=== PATIENT | male | born 1970 | race Caucasian/White ===

== ENCOUNTER 2021-10-03 10:28 | Outpatient (CLI) | payer MEDICARE, MEDICAID, SELFPAY ==
--- NOTE | ~2021-10-03 | US_ITS ---
EXAMINATION: US soft tissue UE RT DATE: 10/03/2021 11:03 INDICATION: Right hand foreign body. TECHNIQUE: Multiple grayscale and Doppler ultrasound images of the right hand were obtained. COMPARISON: None FINDINGS: In the dorsal right hand, there is thrombus in a superficial vein. IMPRESSION: 1. Thrombus in a superficial vein in dorsal right hand. 2. No foreign body. Reviewed, dictated and finalized at location A.
== END 2021-10-03 10:29 | disposition home or self-care (01) ==
LOC: CHSIMG 10:30
PROVIDERS: PCP Internal Medicine; Visit Provider Nurse Practitioner Family
DX: M79.641 Pain in right hand (principal); M79.89 Other specified soft tissue disorders
CPT/HCPCS: 76882

== ENCOUNTER 2022-12-28 09:49 | Outpatient (CLI) | payer MEDICARE, MEDICAID, SELFPAY ==
--- NOTE | ~2022-12-28 | US_ITS ---
EXAMINATION: US retroperitoneal comp DATE: 12/28/2022 11:12 INDICATION: Right ureterovesicular junction stone TECHNIQUE: Multiple ultrasound grayscale images of the kidneys were obtained. COMPARISON: None. FINDINGS: The right kidney measures 11.3 x 5.1 x 4.3 cm. The left kidney measures 12.2 x 5.1 x 6.0 cm. The kidn eys demonstrate normal echogenicity. There is no hydronephrosis in either kidney. No stones identifi ed. The bladder is normal. IMPRESSION: 1. Normal kidneys without hydronephrosis. Reviewed, dictated and finalized at location A.
== END 2022-12-28 09:50 | disposition home or self-care (01) ==
LOC: CHSIMG 09:52
PROVIDERS: PCP Internal Medicine; Visit Provider Internal Medicine
DX: N20.1 Calculus of ureter (principal)
CPT/HCPCS: 76770

== ENCOUNTER 2024-12-14 11:38 | Outpatient (CLI) | payer MEDICARE, MEDICAID, SELFPAY ==
--- NOTE | ~2024-12-14 | XR_ITS ---
EXAMINATION: XR chest 2V 12/14/2024 12:06 INDICATION: Right upper quadrant pain PROCEDURE: 2 view chest COMPARISON: 03/16/2013 FINDINGS: The lungs are clear. The cardiomediastinal silhouette is within normal limits. There are no pleural effusions. There is no pneumothorax suspected. IMPRESSION: 1: NO ACUTE CARDIOPULMONARY DISEASE. Reviewed, dictated and finalized at location B.
--- NOTE | ~2024-12-14 | CT_ITS ---
CT of the Abdomen: Indication: Right upper quadrant pain Technique: 2.5 mm axial scans were obtained through the abdomen following intravenous administration of 100 cc of Omnipaque 350. Dose reduction technique was used on this scan by utilizing automated ex posure control and iterative reconstruction technique. The dose-length product (DLP) was 157.09 mGy-c m. Findings: Scans through the lung bases are unremarkable. The liver, spleen, pancreas, gallbladder, adrenals and kidneys are within normal limits. No evidence of aortic aneurysm. No lymphadenopathy. Visualized bowel loops are unremarkable. No ascites. Impression: No significant abnormalities seen. Reviewed, dictated and finalized at location M. Impression: No significant abnormalities seen.
[2024-12-14 11:59] LABS: Hematocrit 43.6 % (40.0-54.0); Hemoglobin 14.4 g/dL (14.0-18.0); Mean Corpuscular Hemoglobin 31.2 pg (27.0-31.0); Mean Corpuscular Volume 94.6 fL (78.0-102.0); Mean Platelet Volume 10.6 fl (8.7-11.0); Platelet Count Result 197 K/mm3 (150-420); Red Blood Count 4.61 M/mm3 (4.70-6.10); Red Cell Distribution Width 11.9 % (11.6-14.4); White Blood Count 8.1 K/mm3 (4.8-10.8)
[2024-12-14 12:10] LABS: Lactic Acid Reflex 1.5 mmol/L (0.4-2.0)
[2024-12-14 12:12] LABS: Alanine Aminotransferase 20 U/L (6-50); Albumin Level 4.6 g/dL (3.5-5.1); Alkaline Phosphatase 55 U/L (38-126); Anion Gap 5 mmol/L (4-12); Aspartate Amino Transferase 21 U/L (17-59); Bilirubin,Total 0.8 mg/dL (0.2-1.3); Blood Urea Nitrogen 16 mg/dL (9-20); Calcium 9.1 mg/dL (8.4-10.2); Carbon Dioxide 28 mmol/L (22-30); Chloride 106 mmol/L (98-107); Estimated Glomerular Filt Rate > 60; Glucose 100 mg/dL (65-110); Osmolality Calculated 289 mOsm/kg (285-295); Potassium 4.7 mmol/L (3.4-5.0); Sodium 139 mmol/L (137-145); Total Protein 7.2 g/dL (6.3-8.2)
--- OUTSIDE RECORDS SUMMARY | 2024-12-14 12:35 | XMS_ITS | Encounter Summary ---
Author Organization [facility] Healthcare Address [address] [place] [address] Care Team Providers Care Web Content Executive Name Role Phone Misael Treviño MD Primary Care Provider [phone] Encounter Details Date Type Department Care Team (Late st Contact Info) Description 09/16/2021 Documentation [facility] [address] [place] [address] Emily Abbott RN Social History Tobacco Use Types Packs/Day Years Used Date Smoking Tobacco: Former Cigarettes 1 34 1 985 - 2019 Smokeless Tobacco: Never AUDIT-C Answer Date Recorded Q1: How often do you have a drink containing alc ohol? Never 09/09/2021 Average Number of Drinks Not on file 022 Q3: How often do you have si x or more drinks on one occasion? 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
--- OUTSIDE RECORDS SUMMARY | 2024-12-14 12:35 | XMS_ITS | Data Portability ---
Author Organization [facility], [address] [facility] ([place]) Address [address] [place] [address] Care Team Providers Care Concrete Bucket Unloader Name Role Phone ANJEL TORRES Primary Care Provider [phone] Assessment Encounter Date Assessment Date Assessment LastModified by Organization Details LastModified Time 04/11/2024 04/11/2024 In summary, patient s course is stable. PLAN 1. Continue Copaxone for MS preventive therapy. 2. Continue tizanidine for MS-related muscle spasms. 3. Continue ropinirole for restless leg symptoms. 4. Follow up in six months. Patient is aware that I will be retiring at the end of the year, and I will be transferring care to Misty Alcantar of our department. [email or web address] Not available 04/11/2024 15:59:18 10/10/2024 10/10/2024 Dhaval is here today for follow-up for MS and RLS. His MS is currently stable. His RLS is well-controlled . 1. He will go to lab today to have his vitamin D level checked. 2. He will continue Copaxone injections 3 times a week. 3. Continue tizanidine 2 mg twice a day. 4. Continue ropinirole 2 mg 3 times daily for RLS. 5. All patient's question concerns were addressed. He agrees with the plan. 6. Follow-up in 1 year or sooner if needed. [email or web address] Not available 10/10/2024 12:25:21 Plan of Treatment Reminders Order Date Submit Date Provider Last Modified By Organization Details Last Modified Time Details Appointments Establish ed Patient 15.EST 2025 10:00A M Misty Alcantar Not available Not available Not available Lab vitamin D, 25-hydrox y, total, serum [address] [facility], [address] [place] [address], [id number], 10/10/2024 16:26:58 Referral None recorded. Procedures None recorded. Surgeries None recorded. Imaging None recorded. Medication Orders ropinirol e 2 mg tablet 2024 [place] [id number], [address] [place] [address], [address], 10/10/2024 12:16:40 Patient TargetsNo targets recorded. Patient InstructionsNo instructions recorded. Reason for Referral None Reported. Results Created Date Observation Date Name Description Value Unit Range Abnormal Flag Note LastModifiedBy Organization Detail LastModifiedTime 10/11/1910/10/2024 vitam in D, 25-hy droxy , total , serum vitamin D 25-hydroxy totl 33.0 NG/mL 30.0-8 0.0 Less than 20 ng/mL Defic iency 20-29 ng/mL Insuf ficie ncy 30-80 ng/mL Optim al Great er than 80 ng/mL Possi ble toxic ity Not Available [facility] [address] [place] [address], [address], 10/10/2024 16:26:58 Result Notes None recorded. Problems Name Problem SNOMED Code Status Onset Date Resolution Date Notes Provider Name and Address Organization Details Recorded Time Multiple sclerosis 21782630 Active Deja Moran [facility] 4 17:51:30 Spasm 42872423 Active Epifanio Caruso MD [address] [place] [address], [phone] , [facility] 4 11:43:49 Restless legs 85821611 Active Epifanio Caruso MD [address] [place] [address], [phone] , [facility] 4 11:44:07 Problem Notes None recorded. Medical Equipment None Reported. Medications Name Sig Start Date Stop Date Status Note LastModified by Organization Details LastModified Time citalopram 40 mg tablet TAKE 1 TABLET BY MOUTH IN THE MORNING active Not Available Not Available No t Available ropinirole 2 mg tablet TAKE 1 TABLET BY MOUTH 3 TIMES A DAY active Not Available Not Available No t Available tizanidine 2 mg capsule TAKE 1 CAPSULE BY MOUTH 2 TIMES A DAY active Not Available Not Available No t Available pregabalin 75 mg capsule TAKE 1 CAPSULE BY MOUTH TWICE A DAY 04/11 completed Not Available Not Available Not Available pregabalin 150 mg capsule TAKE 1 CAPSULE BY MOUTH TWICE A DAY 04/11 completed Not Available Not Available Not Available pregabalin 300 mg capsule TAKE 1 CAPSULE (300 MG TOTAL) BY MOUTH 2 TIMES A DAY. 04/11 completed Not Available Not Available Not Available Copaxone 40 mg/mL subcutaneous syringe active Not Available Not Available Not Available Vitals Date Recorded Body weight Heart rate Oxygen saturation Oxygen saturation in Arterial blood by Pulse oximetry Systolic blood pressure Diastolic blood pressure Provider Name and Address Organization Details Last Updated DateTime 5 02223.6 9 g 65 /min 98 % 98 % 110 mm[Hg] 78 mm[Hg] Paty [facility] 5 11:55:21 Social History Question Answer Notes LastModified by [employer] Details LastModified Time Tobacco Smoking Status Never Smoker [facility] 10/10/2024 11:55:53 Which Illicit Or Recreational Drugs Have You Used? Marijuana [email or web address] Information not available 10/10/2024 Sex: Unknown Functional Status Question Answer Note LastModified by [employer] Details LastModified Time Do you use any illicit or recreational drugs? Yes [email or web address] Information not available 10/10/2024 Mental Status None recorded. Family History Nothing Reported. Medical History No medical history recorded. Past Encounters Encounter ID Performer Location Encounter Start Date Encounter Closed Date Diagnosis/Indication Diagnosis SNOMED-CT Code Diagnosis ICD10 Code Diagnosis Note [id number] Epifanio Caruso MD [address] [facility] ([place]) [address] [place] [address],[address] [place] [phone] 04/11/2024 11:39:09 04/11/2024 13:23:10 Multiple sclerosis 77127356 G35 Taking hig h risk medication 0674556107 32621 Z79.899 Additional diagnosis detail: High risk medication use Restless legs 65177522 G 25.81 [id number] Misty Alcantar PA-C [address] [facility] ([place]) [address] [place] [address],[address] [place] [address] 10/10/2024 11:49:25 10/10/2024 12:16:05 Restless legs 21113488 G25.81 Multiple sclerosis 43664 007 G35 Taking hig h risk medication 3512356731 71297 Z79.899 Health Concerns Section Related Observation LastModified by Organization Detai ls LastModified Time None Recorded Concern Status LastModified by Organization Details LastModified Time None Recorded Advance Directives Directive None Recorded Payers Insurance Date Sequence Insurance Name Policy Number Policy Way Covered Member ID Way Member ID Guarantor Name 10/06/2024 1 [place] Dhaval Kaur [id number] Dhaval Kaur 10/07/2024 2 [place] [employer] Dhaval Kaur [id number] Dhaval Kaur Notes Date Note Type Note Provider Name and Address Organization Details Recorded Time 04/11/2024 text/html Patient was seen in the office for follow up. He has multiple sclerosis and restless leg syndrome. He is on Copaxone for MS preventive therapy and that has worked well for him with no recent flareups of his disease. He takes ropinirole for his restless leg symptoms and he takes tizanidine for muscle spasms. Those all work well. He walks with a cane and a right AFO. He still drives short distances. He is independent in all of his cares. He has no major concerns today. Epifanio Caruso MD [address] [facility], [place], [address], [facility] 04/17/2024 08:36:25 10/10/2024 text/html Dhaval is here today for follow-up for MS and RLS. He previously was seeing Dr. Caruso. He was diagnosed with MS about 28 years ago at [facility]. He developed optic neuritis and then right sided weakness. He had a spinal tap and MRI to confirm the diagnosis. He initially was started on Avonex. He was then switched over to Copaxone. He still is on Copaxone 3 days a week. He denies any side effects. He does still have residual right sided weakness from his MS. He does ambulate with a cane. He has not had any falls. He does try to stay active. His last MS exacerbation was about a year ago. Usually he will do prednisone pills for which will help. He also takes tizanidine 2 mg twice a day. He is on ropinirole 2 mg 3 times daily for RLS. He reports that is pretty well-controlled. Sometimes RLS does keep him up at night. He has never had his vitamin D level checked. He denies any other changes to his medical history, surgeries or hospitalizations. He has no other new complaints today. Misty Alcantar PA-C [address] [facility], [place], [address], [facility] 10/10/2024 12:25:33
--- OUTSIDE RECORDS SUMMARY | 2024-12-14 12:35 | XMS_ITS | Encounter Summary ---
Author Organization [facility] Healthcare Address [address] [place] [address] Care Team Providers Care Farm Facility Manager Name Role Phone Misael Treviño MD Primary Care Provider [phone] Encounter Details Date Type Department Care Team ([facility] Contact Info) Description 08/21/2021 Telephone [facility] Radiology [address] [place] [address] Roberto Adkins MD [address] [place] [address] Social History Tobacco Use Types Packs/Day Years Used Date Smoking Tobacco: Former Cigarettes 1 34 1 985 - 2019 Smokeless Tobacco: Never AUDIT-C Answer Date Recorded Q1: How often do you have a drink containing alc ohol? 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
--- OUTSIDE RECORDS SUMMARY | 2024-12-14 12:36 | XMS_ITS | Referral Summary ---
Author Organization [facility] Address [facility] [place] [address] Care Team Providers Care Dining Room Busser Name Role Phone Misael Treviño MD Primary Care Provider [phone] Allergies Active Allergy Reactions Criticality Noted Date Comments Lorazepam Other (See comments) Low 09/09/2021 Makes him very jittery Etodolac Nausea And Vomiting High 05/10/2021 Medications citalopram (CeleXA) 40 mg tabletIndicatio ns:Anxiety with Depression Take 1 tablet (40 mg total) by mouth every morning 05/09/2021 Active Copaxone 40 mg/mL syringe 1 mL (40 mg total) 3 (three) times a week Wednesday, Wednesday, Wednesday06/02/2021 Active rOPINIRole (REQUIP) 2 mg tablet Take 1 tablet (2 mg total) by mouth 3 (three) times a day 05/17/2021 Active TiZANidine (ZANAFLEX) 2 mg capsuleIndicati ons:Muscle Spasm Take 1 capsule (2 mg total) by mouth 3 (three) times a day Active medical cannabis each 1 Dose as needed Active HYDROcodone-guillermina taminophen (NORCO) 5-325 mg per tablet Take 1 tablet by mouth every 6 (six) hours as needed 12/22/2022 Active tamsulosin (FLOMAX) 0.4 mg extended release capsule Take 1 capsule (0.4 mg total) by mouth daily 12/22/2022 Active pregabalin (LYRICA) 300 mg capsuleIndicati ons:Trigeminal neuralgia Take 1 capsule (300 mg total) by mouth 2 (two) times a day 180 capsule 3 07/28/2023 Active Active Problems Problem Noted Date Diagnosed Date MS (multiple sclerosis) 10/16/2021 Sensorineural hearing loss, asymmetrical 022 Trigeminal neuralgia 08/25/2021 Immunizations Immunization Administration Dates Next Due TD Preservative Free 01/12/2011 Social History Tobacco Use Types Packs/Day Years Used Date Smoking Tobacco: Former Cigarettes 1 34 1 985 - 2019 Smokeless Tobacco: Never Tobacco Cessation:Counseling Given: No AUDIT-C Answer Date Recorded Q1: How often do you have a drink containing alc ohol? Never 09/25/2021 Average Number of Drinks Not on file 022 Q3: How often do you have si x or more drinks on one occasion? 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 Gender Identity Not on file Sexual Orientation Not on file Last Filed Vital Signs Vital Sign Reading Time Taken Comments Blood Pressure 124/76 09/18/2021 7:00 AM CDT Pulse 64 09/18/2021 7:00 AM CDT Temperature 36.7 C (98.1 F) 09/18/2021 7:00 AM CDT Respiratory Rate 15 09/18/2021 7:00 AM CDT Oxygen Saturation 99% 09/18/2021 7:00 AM CDT Inhaled Oxygen Concentration - - Weight 83.9 kg (185 lb) 11/24/2021 12:03 PM CDT Height 177.8 cm (5' 10) 11/24/2021 12:03 PM CDT Body Mass Index 26.54 11/24/2021 12:03 PM CDT Plan of Treatment Not on file Medical Devices Implanted Type Area Pensionholder Information Clerk Device Identifier Shelf Expiration Date Model / Serial / Lot [employer] 6191-1-010 Simplex P Radiopaque Full Dose Cement Bone Sterile - [id number] Implanted:Qty: 1 on 09/16/2021 by Roberto Adkins MD at [facility] Cranial [employer] 6191-1-010 / / [employer] [id number] Traumaone Nico 6 Hole Midface Regular Straight Plate Bone - [id number] Implanted:Qty: 1 on 09/16/2021 by Roberto Adkins MD at [facility] Cranial [employer] 17 / / [employer] [id number] Traumaone Nico 1.5mm 4mm Self Drill High [address] - [id number] Implanted:Qty: 2 on 09/16/2021 by Roberto Adkins MD at [facility] Cranial [employer] [id number] / / Insurance MEDICARE [facility] Advance Directives For more information, please contact: [phone] * Full Code (Latest Code Status on File) Date Activated Date Inactivated Comments 09/16/2021 7:21 PM 09/18/2021 4:13 PM * Full Code Date Activated Date Inactivated Comments 09/16/2021 7:17 PM 09/16/2021 7:21 PM Care Teams Dining Room Busser Relationship Specialty Start Date End Date Misael Treviño MD [address] [place] [address] PCP - General Internal Medicine 06/19/21
--- OUTSIDE RECORDS SUMMARY | 2024-12-14 12:36 | XMS_ITS | Clinical Summary ---
Author Organization [facility] Address [facility] [place] [address] Care Team Providers Care Insurance Verifier Name Role Phone Misael Treviño MD Primary Care Provider [phone] Allergies Active Allergy Reactions Criticality Noted Date [...] Dates Next Due TD Preservative Free 01/12/2011 Surgical History Surgery Date Site/Laterality Comments COLONOSCOPY Medical History Medical History Date Comments Depression MS (multiple sclerosis) (HCC) Trigeminal neuralgia Sleep apnea Family History Medical History Relation Name Comments Cancer Brother Hypertension Father Stroke Father Alzheimer's disease Maternal Grandfather Depression Maternal Grandfather Memory loss Maternal Grandfather Stroke Maternal Grandfather Depression Maternal Grandmother Diabetes Maternal Grandmother Heart attack Mother Heart disease Mother Hypertension Mother Kidney disease Mother Anemia Sister Depression Sister Relation Name Status Comments Brother Father Maternal Grandfather Maternal Grandmother Mother Sister Social History Tobacco Use Types Packs/Day Years Used Date Smoking Tobacco: Former Cigarettes 1 34 1 - 2018 Smokeless Tobacco: Never Tobacco Cessation:Counseling Given: No [...] on file 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 Gender Identity Not on file Sexual Orientation Not on file Obstetrics History Last Filed Vital Signs Vital Sign Reading [...] 11/24/2021 12:03 PM CDT Plan of Treatment Health Maintenance Due Date Last Done Comments Colon Cancer Screening-Colonoscopy 1970 Depression Screening 1970 Hepatitis C Screening 1970 Prostate Cancer Screening-PSA 1970 Hepatitis B Screening 1988 Regular Well Visit/Exam 18-64 1988 DTaP/Tdap/Td Vaccine (1 - Tdap) 01/13/2011 01/12/2011 Lung Cancer Screening 2020 Zoster Vaccine (1 of 2) 2020 Covid-19 Vaccine (4 - 2023-2 5 season) 2024 06/05/2021, 10/08/2020, 09/16/2020 Influenza Vaccine (Season Ended) 2025 Pneumococcal vaccine <65 Aged Out No longer eligible based on patient's age to complete this topic Medical Devices Implanted Type Area Monotype Mechanic Device Identifier Shelf Expiration Date Model / Serial / Lot [employer] 6191-1-010 Simplex P Radiopaque Full Dose Cement Bone Sterile - [id number] Implanted:Qty: 1 on 09/16/2021 by Roberto Adkins MD at [facility] Cranial [employer] 6191-1-010 / / [employer] -[id number] Traumaone Nico 6 Hole Midface Regular Straight Plate Bone - [id number] Implanted:Qty: 1 on 09/16/2021 by Roberto Adkins MD at [facility] Cranial [employer] -[id number] / / [employer] -[id number] Traumaone Nico 1.5mm 4mm Self Drill High [address] - [id number] Implanted:Qty: 2 on 09/16/2021 by Roberto Adkins MD at [facility] Cranial [employer] [id number] / / Insurance MEDICARE [facility] Address: [address] [address] [place] [address] [employer] Advance Directives For more information, please contact: [phone] * Full Code (Latest Code Status on File) Date Activated Date Inactivated Comments 09/16/2021 7:21 PM 09/18/2021 4:13 PM * Full Code Date Activated Date Inactivated Comments 09/16/2021 7:17 PM 09/16/2021 7:21 PM Care Teams Insurance Verifier Relationship Specialty Start Date End Date Misael Treviño MD [address] [place] [address] PCP - General Internal Medicine 06/19/21
== END 2024-12-14 11:39 | disposition home or self-care (01) ==
LOC: CHSLAB 11:43
PROVIDERS: PCP Internal Medicine; Visit Provider Internal Medicine
DX: R10.11 Right upper quadrant pain (principal); R07.89 Other chest pain
CPT/HCPCS: 36415; 71046; 74160; 80053; 83605; 85027; Q9967

== ENCOUNTER 2024-12-19 10:09 | Outpatient (CLI) | payer MEDICARE, MEDICAID, SELFPAY ==
--- NOTE | 2024-12-19 11:12 | ECHO_ITS ---
Patient Info Name: Dhaval Kaur Age: 54 years : 1970 Gender: Male Ht: 70 in Wt: 168 lbs BSA: 1.95 m2 HR: 52 bpm BP: 131 / 66 mmHg Technical Quality: Good Exam Date: 12/19/2024 10:23 AM Patient Status: O Admit Date: 12/19/2024 Exam Type: CA echo doppler color flow Complete two-dimensional, color flow and Doppler transthoracic echocardiogram is performed. Merchandising Execution Associate: Annia Ram Attending Provider: Misael Treviño MD Summary 1. Complete two-dimensional, color flow and Doppler transthoracic echocardiogram is performed. 2. Left ventricular chamber dimension is normal. 3. Left ventricular systolic function is normal, estimated at 65-70. 4. The left ventricular diastolic function is normal. 5. E/e' 6 is not elevated. 6. There is mild aortic valve sclerosis. 7. There is trace mitral valve regurgitation. 8. There is trace tricuspid valve regurgitation. 9. No pulmonary hypertension, estimated pulmonary arterial systolic pressure is 34 mmHg. 10. Dilated inferior vena cava with >50% collapse upon inspiration consistent with elevated right atrial pressure, 10 mmHg. Left Ventricle E/e' 6 is not elevated. Left ventricular chamber dimension is normal. Left ventricular systolic function is normal, estimated at 65-70. The left ventricular diastolic function is normal. Right Ventricle Right ventricular chamber dimension is normal. Right ventricular systolic function is normal and with normal TAPSE 2.9 cm. Left Atria Left atrial chamber dimension is normal. Right Atria Right atrial chamber dimension is normal. Aortic Valve The aortic valve is trileaflet. There is mild aortic valve sclerosis. There is no aortic valve stenosis. There is no aortic valve regurgitation. Pulmonic Valve There is no pulmonic regurgitation. Mitral Valve There is no mitral valve stenosis. There is trace mitral valve regurgitation. Tricuspid Valve There is trace tricuspid valve regurgitation. No pulmonary hypertension, estimated pulmonary arterial systolic pressure is 34 mmHg. Pericardium/Pleural There is no pericardial effusion. Inferior Vena Cava Dilated inferior vena cava with >50% collapse upon inspiration consistent with elevated right atrial pressure, 10 mmHg. Aorta The aortic root size at the sinus of Valsalva is normal. Left Ventricular Outflow Tract Name Value Normal LVOT 2D LVOT Diameter 1.9 cm LVOT Doppler LVOT Peak Velocity 133 cm/s LVOT Peak Gradient 7 mmHg LVOT Mean Gradient 3 mmHg LVOT VTI 29 cm LVOT VTI/AV VTI Ratio 0.8 LVOT Stroke Volume 79 ml LVOT CO 3.9 l/min LVOT CI 2.0 l/min/m2 Pulmonic Valve Name Value Normal PV Doppler PV Peak Velocity 90 cm/s PV Peak Gradient 3 mmHg Mitral Valve Name Value Normal MV Diastolic Function MV E Peak Velocity 94 cm/s MV A Peak Velocity 55 cm/s MV E/A 1.7 MV Decel Time (PW) 233 ms MV Annular TDI MV E/e' (Septal) 7.0 MV E/e' (Lateral) 6.2 MV E/e' (Average) 6.6 Tricuspid Valve Name Value Normal TV Regurgitation Doppler TR Peak Velocity 243 cm/s TR Peak Gradient 20 mmHg Estimated PAP/RSVP RA Pressure 10 mmHg <=5 PA Systolic Pressure 34 mmHg <36 RV Systolic Pressure 34 mmHg <36 TV Annular TDI TV Lateral Chanda s' Velocity 14.6 cm/s >=9.5 Aortic Valve Name Value Normal AV Doppler AV Peak Velocity 162 cm/s AV Peak Gradient 10 mmHg AV Mean Gradient 5 mmHg AV VTI 36 cm AV Area (Cont Eq VTI) 2.2 cm2 >=3.0 AV Area (Cont Eq Prosper) 2.3 cm2 AV DI (Prosper) 0.82 AV Regurgitation 2D LVOT Area 2.7 cm2 Ventricles Name Value Normal LV Dimensions 2D/MM IVS Diastolic Thickness (2D) 0.9 cm 0.6-1.0 LVID Diastole (2D) 4.6 cm 4.2-5.8 LVIW Diastolic Thickness (2D) 0.9 cm 0.6-1.0 LVID Systole (2D) 2.8 cm 2.5-4.0 LVOT Diameter 1.9 cm LV Mass (2D Cubed) 139.34 g 88.00-224.00 LV Mass Index (2D Cubed) 72 g/m2 49-115 Relative Wall Thickness (2D) 0.39 <=0.42 LV Fractional Shortening/Ejection Fraction 2D/MM LV Fractional Shortening (2D) 40 % 25-43 LV EF (2D Teichholz) 70 % LV Diastolic Volume (4C MOD) 122 ml LV EF (4C MOD) 66 % LV Diastolic Volume (2C MOD) 134 ml LV EF (2C MOD) 69 % LV Diastolic Volume (BP MOD) 128 ml 62-150 LV Diastolic Volume Index (BP MOD) 66 ml/m2 34-74 LV Systolic Volume (BP MOD) 44 ml 21-61 LV Systolic Volume Index (BP MOD) 22 ml/m2 11-31 LV EF (BP MOD) 66 % 52-72 LV Diastolic Length (4C) 9.2 cm LV Systolic Length (4C) 7.1 cm LV Stroke Volume (4C MOD) 80 ml Atria Name Value Normal LA Dimensions LA Volume (4C A-L) 51 ml LA Volume (BP A-L) 58 ml RA Dimensions RA Systolic Major [place] Length (4C) 5.4 cm 2.1-2.7 RA Area (4C) 20.2 cm2 <=18.0 Report Signatures
--- OUTSIDE RECORDS SUMMARY | 2024-12-19 11:22 | XMS_ITS | Data Portability ---
Author Organization [facility], [address] [facility] ([place]) Address [address] [place] [address] Care Team Providers Care Life Enrichment Manager Name Role Phone ANJEL TORRES Primary Care Provider [phone] Assessment Encounter Date Assessment Date Assessment LastModified [...] to Misty Alcantar of our department. jcb Not available 04/11/2024 15:59:18 10/10/2024 10/10/2024 Dhaval [...] in 1 year or sooner if needed. Not available 10/10/2024 12:25:21 Plan of Treatment Reminders Order Date Submit Date Provider Last Modified By Organization Details Last Modified Time Details Appointments Establish ed Patient 15.EST 2025 10:00A M Misty Alcantar Not available Not available Not available Lab vitamin D, 25-hydrox y, total, serum 2024 025 [facility] [place] [facility], [address] [place] [address], [address], 10/10/2024 16:26:58 Referral None recorded. Procedures None recorded. Surgeries None recorded. Imaging None recorded. Medication Orders ropinirol e 2 mg tablet 2024 [place] [id number], [address] [place] [address], [address], 10/10/2024 12:16:40 Patient TargetsNo targets recorded. Patient [...] ng/mL Possi ble toxic ity Not Available [place] [facility] [address] [place] [address], [address], 10/10/2024 16:26:58 Result Notes None recorded. Problems Name Problem SNOMED Code Status Onset Date Resolution Date Notes Provider Name and Address Organization Details Recorded Time Multiple sclerosis 94005617 Active Deja Moran [facility] 4 17:51:30 Spasm 33819043 Active Epifanio Caruso MD [address] [place] [address], [address] , [facility] 4 11:43:49 Restless legs 32444883 Active Epifanio Caruso MD [address] [place] [address], [address] , [facility] 4 11:44:07 Problem Notes None recorded. Medical [...] completed Not Available Not Available Not Available glatiramer 40 mg/mL subcutaneous syringe inject 1 syringe under the skin 3 times per week at least 48 hrs apart. allow syringe to warm to room temp for 20 mins. 2024 active Not Available Not Available Not Avai lable Vitals Date Recorded Body weight Heart rate Oxygen saturation Oxygen saturation in Arterial blood by Pulse oximetry Systolic blood pressure Diastolic blood pressure Provider Name and Address Organization Details Last Updated DateTime 5 08475.6 9 g 65 /min 98 % 98 % 110 mm[Hg] 78 mm[Hg] Paty [facility] 5 11:55:21 Social History Question Answer Notes LastModified by [employer] Details LastModified Time Tobacco Smoking Status Never Smoker Paty Carlisle [facility] 10/10/2024 11:55:53 Which Illicit Or Recreational Drugs Have You Used? Marijuana [email or web address] Information not available 10/10/2024 Sex: Unknown Functional Status Question Answer Note LastModified by [employer] Details LastModified Time Do you use any illicit or recreational drugs? Yes [email or web address] Information not available 10/10/2024 Mental Status None recorded. Family History Nothing Reported. Medical History No medical history recorded. Past Encounters Encounter ID Performer Location Encounter Start Date Encounter Closed Date Diagnosis/Indication Diagnosis SNOMED-CT Code Diagnosis ICD10 Code Diagnosis Note [id number] Epifanio Caruso MD [address] [facility] ([place]) [address] [place] [address] 04/11/2024 11:39:09 04/11/2024 13:23:10 Multiple sclerosis 06268184 G35 Taking hig h risk medication 1618326395 14100 Z79.899 Additional diagnosis detail: High risk medication use Restless legs 18760988 G 25.81 [id number] Misty Alcantar PA-C [address] [facility] ([place]) [address] [place] [address] 10/10/2024 11:49:25 10/10/2024 12:16:05 Restless legs 92794090 G25.81 Multiple sclerosis 97691 007 G35 Taking hig h risk medication 2535858904 31003 Z79.899 Health Concerns Section Related Observation LastModified by Organization Detai ls LastModified Time None Recorded Concern Status LastModified by Organization Details LastModified Time None Recorded Advance Directives Directive None Recorded Payers Insurance Date Sequence Insurance Name Policy Number Policy Way Covered Member ID Way Member ID Guarantor Name 10/06/2024 1 [place] Dhaval Kaur [id number] Dhaval Kaur 10/07/2024 2 [place] DEPARTMENT [place] A[place] Dhaval Kaur [id number] Dhaval Kaur Notes Date Note Type Note [...] concerns today. Epifanio Caruso MD [address] [place] [address], [phone], [facility] 04/17/2024 08:36:25 10/10/2024 text/html Dhaval is here today for follow-up for MS and RLS. He previously was seeing Dr. Caruso. He was diagnosed with MS about 28 years ago at [place]. He developed optic neuritis and then right [...] complaints today. Misty Alcantar PA-C [address] [facility], [place], [address], [facility] 10/10/2024 12:25:33
--- OUTSIDE RECORDS SUMMARY | 2024-12-19 11:22 | XMS_ITS | Encounter Summary ---
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
--- OUTSIDE RECORDS SUMMARY | 2024-12-19 11:22 | XMS_ITS | Encounter Summary ---
Author Organization [facility] Healthcare Address [address] [place] [address] Care Team Providers Care Assistant Professor Of Religion Name Role Phone Misael Treviño MD Primary Care Provider [phone] Encounter Details Date Type Department Care Team (Late st Contact Info) Description 09/16/[address] 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
--- OUTSIDE RECORDS SUMMARY | 2024-12-19 11:22 | XMS_ITS | Referral Summary ---
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 Gender Identity Not on file Sexual Orientation [...] on file Medical Devices Implanted Type Area Manager Fast Food Device Identifier Shelf Expiration Date Model / Serial / Lot [employer] 6191-1-010 Simplex P Radiopaque Full Dose Cement Bone Sterile - [id number] Implanted:Qty: 1 on 09/16/2021 by Roberto Adkins MD at [facility] Cranial [employer] 6191-1-010 / / [employer] [id number] Traumaone Nico 6 Hole Midface Regular Straight Plate Bone - [id number] Implanted:Qty: 1 on 09/16/2021 by Roberto Adkins MD at [facility] Cranial [employer] 38 / / [employer] [id number] Traumaone Nico 1.5mm 4mm Self Drill High Torque [address] - [id number] Implanted:Qty: 2 on 09/16/2021 by Roberto Adkins MD at [facility] Cranial [employer] [id number] / / Insurance MEDICARE [facility] Advance Directives For more information, please contact: [phone] * Full Code (Latest Code Status on File) Date Activated Date Inactivated Comments 09/16/2021 7:21 PM 09/18/2021 4:13 PM * Full Code Date Activated Date Inactivated Comments 09/16/2021 7:17 PM 09/16/2021 7:21 PM Care Teams Supervisor Opening And Picking Relationship Specialty Start Date End Date Misael Treviño MD [address] [place] [address] PCP - General Internal Medicine 06/19/21
--- OUTSIDE RECORDS SUMMARY | 2024-12-19 11:22 | XMS_ITS | Clinical Summary ---
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 Gender Identity Not on file Sexual Orientation [...] this topic Medical Devices Implanted Type Area Radiologist Physician Device Identifier Shelf Expiration Date Model / Serial / Lot [employer] 6191-1-010 Simplex P Radiopaque Full Dose Cement Bone Sterile - [id number] Implanted:Qty: 1 on 09/16/2021 by Roberto Adkins MD at [facility] Cranial [employer] 6191-1-010 / / [employer] -9906 Traumaone Nico 6 Hole Midface Regular Straight Plate Bone - [id number] Implanted:Qty: 1 on 09/16/2021 by Roberto Adkins MD at [facility] Cranial [employer] -[id number] / / [employer] -2005 Traumaone Nico 1.5mm 4mm Self Drill High Tor[address] - [id number] Implanted:Qty: 2 on 09/16/2021 by Roberto Adkins MD at [facility] Cranial [employer] [id number] / / Insurance MEDICARE [place] Advance Directives For more information, please contact: [phone] * Full Code (Latest Code Status on File) Date Activated Date Inactivated Comments 09/16/2021 7:21 PM 09/18/2021 4:13 PM * Full Code Date Activated Date Inactivated Comments 09/16/2021 7:17 PM 09/16/2021 7:21 PM Care Teams Coding Coordinator Relationship Specialty Start Date End Date Misael Treviño MD [address] [place] [address] PCP - General Internal Medicine 06/19/21
== END 2024-12-19 10:10 | disposition home or self-care (01) ==
PROVIDERS: PCP Internal Medicine; Visit Provider Internal Medicine
DX: R01.1 Cardiac murmur, unspecified (principal); I35.8 Other nonrheumatic aortic valve disorders
CPT/HCPCS: 93306

== ENCOUNTER 2025-01-17 10:19 | Outpatient (CLI) | payer MEDICARE, MEDICAID, SELFPAY ==
--- NOTE | ~2025-01-17 | XR_ITS ---
Lumbosacral Spine: AP and lateral views Clinical History: Pain Findings: The normal lordotic curve is maintained. No fracture seen. Grade 1 retrolisthesis of L3 ove r L4 noted.. The sacroiliac joints are normally outlined. Impression: Grade 1 anterolisthesis of L3 over L4. Reviewed, dictated and finalized at [facility]. Impression: Grade 1 anterolisthesis of L3 over L4.
--- NOTE | ~2025-01-17 | XR_ITS ---
Thoracic spine: Clinical Indication: Back pain AP and lateral views were performed. No fracture is seen. There is normal alignment of the vertebrae. The intervertebral disc spaces appe ar normal. Paravertebral soft tissues appear normal. Impression: No significant abnormalities noted. Reviewed, dictated and finalized at [facility]. Impression: No significant abnormalities noted.
--- OUTSIDE RECORDS SUMMARY | 2025-01-17 10:35 | XMS_ITS | Encounter Summary ---
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
--- OUTSIDE RECORDS SUMMARY | 2025-01-17 10:35 | XMS_ITS | Data Portability ---
Author Organization [facility], [address] [facility] ([place]) Address [address] [place] [address] Care Team Providers Care Commercial Assistant Name Role Phone ANJEL TORRES Primary Care Provider [phone] Assessment Encounter Date Assessment Date Assessment LastModified [...] to Misty Alcantar of our department. [email or web address] [email or web address] Not available 04/11/2024 15:59:18 10/10/2024 10/10/2024 Dhaval [...] in 1 year or sooner if needed. [email or web address] Not available 10/10/2024 12:25:21 Plan of Treatment Reminders Order Date Submit Date Provider Last Modified By Organization Details Last Modified Time Details Appointments Establish ed Patient 15.EST 2025 10:00A M Misty Alcantar Not available Not available Not available Lab vitamin D, 25-hydrox y, total, serum 2024 025 [facility] [place] [facility], [address] [place] [address], [address], 10/10/2024 16:26:58 Referral None recorded. Procedures None recorded. Surgeries None recorded. Imaging None recorded. Medication Orders ropinirol e 2 mg tablet [address] [id number], [address] [place] [address], [address], 10/10/2024 12:16:40 Patient TargetsNo targets recorded. Patient [...] ng/mL Possi ble toxic ity Not Available [place] [facility] [place] [facility] [address] [place] [address], [address], 10/10/2024 16:26:58 01/08/20 25 12/22/2018 imagi ng/di agnos tic resul t No observ ation record ed. [email or web address] Not Available 0 01/07/2025 12:56:31 Result Notes None recorded. Problems Name Problem SNOMED Code Status Onset Date Resolution Date Notes Provider Name and Address Organization Details Recorded Time Multiple sclerosis 08754547 Active Deja castro, [facility] 4 17:51:30 Spasm 96958733 Active Epifanio Caruso MD [address] [place], [address] , [facility] 4 11:43:49 Restless legs 52618635 Active 024 Epifanio Caruso MD [address] [place] [address], [address] , [facility] 4 11:44:07 Problem Notes None recorded. Medical [...] mg capsule TAKE 1 CAPSULE BY MOUTH 3 TIMES A DAY active [...] in Arterial blood by Pulse oximetry Systolic And Diastolic Provider Name and Address Organization Details Last Updated DateTime 5 99028.6 9 g 65 /min 98 % 98 % 110/78 mm[Hg] Paty Carlisle [facility] 5 11:55:21 Social History Question Answer Notes LastModified by Organizat ion Details LastModified Time Tobacco Smoking Status Never Smoker Paty Orestes [facility] 10/10/2024 11:55:53 Which Illicit Or Recreational Drugs Have You Used? Marijuana [email or web address] Information not available 10/10/2024 Sex: Unknown Functional Status Question Answer Note LastModified by Organizat ion Details LastModified Time Do you use any illicit or recreational drugs? Yes [email or web address] Information not available 10/10/2024 Mental Status None recorded. Family History Nothing Reported. Medical History No medical history recorded. Past Encounters Encounter ID Performer Location Encounter Start Date Encounter Closed Date Diagnosis/Indication Diagnosis SNOMED-CT Code Diagnosis ICD10 Code Diagnosis Note [id number] Epifanio Caruso MD [address] [facility] ([place]) [address] [place] [address],[address] [place] [address] 04/11/2024 11:39:09 04/11/2024 13:23:10 Multiple sclerosis 13738915 G35 Taking hig h risk medication 9498947777 93533 Z79.899 Additional diagnosis detail: High risk medication use Restless legs 71360578 G 25.81 [id number] Misty Alcantar PA-C [address] [facility] ([place]) [address] [place] [address],[address] [place] [address] 10/10/2024 11:49:25 10/10/2024 12:16:05 Restless legs 54218304 G25.81 Multiple sclerosis 92892 007 G35 Taking hig h risk medication 4093612503 77443 Z79.899 Health Concerns Section Related Observation LastModified by Organization Detai ls LastModified Time None Recorded Concern Status LastModified by Organization Details LastModified Time None Recorded Advance Directives Directive None Recorded Payers Insurance Date Sequence Insurance Name Policy Number Policy Way Covered Member ID Way Member ID Guarantor Name 10/06/2024 1 [facility] Dhaval Kaur [id number] Dhaval Kaur 10/07/2024 2 [place] DEPARTMENT [place] PUBLIC AID Dhaval Kaur [id number] Dhaval Kaur Notes Date Note Type Note [...] concerns today. Epifanio Caruso MD [address] [place] [address], [phone], [facility] 04/17/2024 08:36:25 10/10/2024 text/html Dhaval is here today for follow-up for MS and RLS. He previously was seeing Dr. Caruso. He was diagnosed with MS about 28 years ago at [place]. He developed optic neuritis and then right [...] complaints today. Misty Alcantar PA-C [address] [place] [address], [address], [facility] 10/10/2024 12:25:33
--- OUTSIDE RECORDS SUMMARY | 2025-01-17 10:35 | XMS_ITS | Clinical Summary ---
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 Gender Identity Not on file Sexual Orientation [...] season) 2024 06/05/2021, 10/08/2020, 09/16/2020 Influenza Vaccine (#1) 2025 Pneumococcal vaccine <65 Aged Out No longer eligible based on patient's age to complete this topic Medical Devices Implanted Type Area Cfd Engineer Device Identifier Shelf Expiration Date Model / Serial / Lot [employer] 6191-1-010 Simplex P Radiopaque Full Dose Cement Bone Sterile - [id number] Implanted:Qty: 1 on 09/16/2021 by Roberto Adkins MD at [facility] Cranial [employer] 6191-1-010 / / [employer] -[id number] Traumaone Nico 6 Hole Midface Regular Straight Plate Bone - [id number] Implanted:Qty: 1 on 09/16/2021 by Roberto Adkins MD at [facility] Cranial [employer] -[id number] / / [employer] -6553 Traumaone Nico 1.5mm 4mm Self Drill High Tor[address] - [id number] Implanted:Qty: 2 on 09/16/2021 by Roberto Adkins MD at [facility] Cranial [employer] [id number] / / Insurance MEDICARE [place] Advance Directives For more information, please contact: [phone] * Full Code (Latest Code Status on File) Date Activated Date Inactivated Comments 09/16/2021 7:21 PM 09/18/2021 4:13 PM * Full Code Date Activated Date Inactivated Comments 09/16/2021 7:17 PM 09/16/2021 7:21 PM Care Teams Back Tender Pulp Drier Relationship Specialty Start Date End Date Misael Treviño MD [address] [place] [address] PCP - General Internal Medicine 06/19/21
--- OUTSIDE RECORDS SUMMARY | 2025-01-17 10:35 | XMS_ITS | Referral Summary ---
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 Gender Identity Not on file Sexual Orientation [...] on file Medical Devices Implanted Type Area Marketing Engineer Device Identifier Shelf Expiration Date Model / Serial / Lot [employer] 6191-1-010 Simplex P Radiopaque Full Dose Cement Bone Sterile - [id number] Implanted:Qty: 1 on 09/16/2021 by Roberto Adkins MD at [facility] Cranial [employer] 6191-1-010 / / Moisture Mapper [employer] [id number] Traumaone Nico 6 Hole Midface Regular Straight Plate Bone - [id number] Implanted:Qty: 1 on 09/16/2021 by Roberto Adkins MD at [facility] Cranial [employer] 08 / / [employer] [id number] Traumaone Nico 1.5mm 4mm Self Drill High [address] - [id number] Implanted:Qty: 2 on 09/16/2021 by Roberto Adkins MD at [facility] Cranial [employer] [id number] / / Insurance MEDICARE [facility] Advance Directives For more information, please contact: [phone] * Full Code (Latest Code Status on File) Date Activated Date Inactivated Comments 09/16/2021 7:21 PM 09/18/2021 4:13 PM * Full Code Date Activated Date Inactivated Comments 09/16/2021 7:17 PM 09/16/2021 7:21 PM Care Teams Stadium Manager Relationship Specialty Start Date End Date Misael Treviño MD [address] [place] [address] PCP - General Internal Medicine 06/19/21
--- OUTSIDE RECORDS SUMMARY | 2025-01-17 10:35 | XMS_ITS | Encounter Summary ---
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
== END 2025-01-17 10:20 | disposition home or self-care (01) ==
PROVIDERS: PCP Internal Medicine; Visit Provider Internal Medicine
DX: M54.6 Pain in thoracic spine (principal); M43.17 Spondylolisthesis, lumbosacral region
CPT/HCPCS: 72072; 72100